=== PATIENT | male | born 1970 | race Caucasian/White ===

== ENCOUNTER 2020-05-12 10:07 | Outpatient (REF) | payer OTHER, SELFPAY | END 2020-05-12 10:08 | disposition home or self-care (01) | LOC: HO.LAB 10:07 | PROVIDERS: Visit Provider Internal Medicine | DX: Z20.822 Contact with and (suspected) exposure to COVID-19 (principal) | CPT/HCPCS: 36415; C9803; U0003 ==

== ENCOUNTER 2020-05-26 14:31 | Emergency (ER) | payer OTHER, SELFPAY | END 2020-05-26 17:40 | disposition left against medical advice (07) | PROVIDERS: Emergency Provider Emergency Medicine; PCP Internal Medicine | DX: K46.9 Unspecified abdominal hernia without obstruction or gangrene (principal) ==

== ENCOUNTER 2020-06-11 20:24 | Emergency (ER) | payer OTHER, SELFPAY | END 2020-06-11 21:08 | disposition left against medical advice (07) | PROVIDERS: Emergency Provider Emergency Medicine; PCP Internal Medicine | DX: K46.9 Unspecified abdominal hernia without obstruction or gangrene (principal) ==

== ENCOUNTER 2021-08-26 11:08 | Emergency (ER) | payer OTHER, SELFPAY ==
--- NOTE | ~2021-08-26 | XR_ITS ---
EXAMINATION: XR CHEST CLINICAL INFORMATION: Cough COMPARISON: 07/02/2019, 01/31/2019 TECHNIQUE: 2 views of the chest were obtained. FINDINGS: Normal cardiomediastinal silhouette. Mild hyperinflation of the lungs. There are 2 nodular opacities in the left upper lobe, the more superior nodule was present on the chest x-ray from 01/31/2019. No large focal consolidation. No pleural effusion or pneumothorax. No acute osseous abnormality. XR/XR chest 2V IMPRESSION: Mild hyperinflation of the lungs, which can be seen in setting of COPD. No acute consolidation. 2 nodular opacities in the left upper lobe, one of which was present since the prior study, the other is new. Recommend further evaluation with CT of the chest.
[2021-08-26 11:18] VITALS: BP 112/71; PULSE 60; RESP 19; TEMP 36.8; O2SAT 96; BMI 21.4
--- NOTE | 2021-08-26 11:49 | ED_ITS ---
HPI - General Adult General Chief complaint: General Medical Stated complaint: Fever/Body aches Time Seen by Provider: 08/26/21 11:44 Source: patient Mode of arrival: ambulatory History of Present Illness HPI narrative: 51-year-old male with past medical history of asthma presenting to the ED complaining of subjective fever, chills, headache, body aches/myalgias and nonproductive cough x1 week. Reports symptoms persistent/worsening. Reports chronic SOB unchanged. Denies CP, ear pain, recent travel. Reports sick contacts Onset (ago): week(s) Related Data Previous Rx's Medication Instructions Recorded acetaminophen 500 mg tablet 500 mg PO Q6H PRN #20 tab 08/26/21 (Tylenol Extra Strength) albuterol sulfate 90 mcg/actuation 2 puff INHALATION Q4-6H PRN #6.7 g 08/26/21 aerosol inhaler benzonatate 200 mg capsule 200 mg PO TID PRN #14 cap 08/26/21 doxycycline hyclate 100 mg tablet 100 mg PO BID 7 Days #14 tab 08/26/21 fluticasone propionate 50 2 spray INTRANASAL DAILY #16 g 08/26/21 mcg/actuation nasal spray,suspension (Flonase Allergy Relief) Allergies Allergy/AdvReac Type Severity Reaction Status Date / Time No Known Allergies Allergy Unverified 01/20/20 14:57 Roxicet Allergy Unknown Uncoded 10/16/11 00:00 Review of Systems Review of Systems: Constitutional: +Fever, + Chills ENT/Mouth: No Ear Pain, + Nasal Congestion, No Sinus Pain, + Hoarseness, + sore throat, + Rhinorrhea, No Swallowing Difficulty Cardiovascular: No Chest Pain, No SOB Respiratory: + Cough, No Sputum, No Wheezing Gastrointestinal: No Nausea, No Vomiting, No Diarrhea, No Constipation, No Abdominal pain Genitourinary:No Dysuria, No Urgency, No Flank Pain Musculoskeletal: No joint pain, + Myalgias, No Joint Swelling Skin: No Skin Lesions, No rash Neuro: No Weakness, No Numbness, No Paresthesias Yes all other systems are reviewed and are negative [facility] Past Medical History Attestation statement: The following information was validated with the patient. Medical History Asthma Social History Social History Advance Directives: No Advance Directives Information Provided: No Physical Exam ED Vital Signs: Vital Signs - 24 hr 08/26/21 11:18 Temperature 98.3 F Pulse Rate 60 Respiratory Rate 19 Blood Pressure 112/71 Pulse Oximetry 96 BMI result Body Mass Index 21.4 Const General: cooperative, healthy appearing, no acute distress, well developed, alert, awake and Physically active Orientation/consciousness: patient oriented x3 Limitations: no limitations HENMT Head: Yes normal to inspection and Yes atraumatic Ears: hearing grossly normal bilaterally, external ears normal, TM's normal bilaterally and mastoids normal General nose exam: Normal external nose present Face and sinus: Yes normal facial exam Mouth: Normal oral and palatal mucosa present Throat: Yes tonsils normal, Yes uvula midline, No abnormal tonsil, No peritonsillar mass, Yes posterior oropharynx abnormal (Mild posterior oropharynx erythema), No uvula laterally displaced and No uvular edema Eyes General: appearance normal, both eyes and all related structures EOM: EOMs intact bilaterally Neck Neck: Yes normal visual inspection and Yes no meningeal signs Resp Effort & Inspection: normal respiratory effort and no respiratory distress Auscultation: clear to auscultation bilaterally, no rales, no rhonchi and no wheezes Cardio Rate: regular rate Heart sounds: S1 normal heart sound present and S2 normal heart sound present Skin Rashes: no rashes Wounds: no wounds Neuro General: patient oriented x3, tone normal and no meningeal signs Gait exam (Neuro): Normal gait present Extrem General: Yes normal to inspection Course Course Course Narrative: -COVID-19 positive 1227--XR chest 2V IMPRESSION: Mild hyperinflation of the lungs, which can be seen in setting of COPD. No acute consolidation. ? 2 nodular opacities in the left upper lobe, one of which was present since the prior study, the other is new. Recommend further evaluation with CT of the chest. > will obtain labs and CT for further eval >> results discussed with patient, patient refusing labs/CT as is aware of nodularity, even though I discussed with him there is new nodularity. Patient reports when had previous nodule worked up ended up with pneumothorax after benign biposy. I stressed importance of follow-up with PCP for outpatient CT/workup. He verbalized understanding Medical Decision Making MDM Narrative Medical decision making narrative: 51-year-old male with past medical history of asthma presenting to the ED complaining of subjective fever, chills, headache, body aches/myalgias and nonproductive cough x1 week. On exam vital signs stable, NAD/nontoxic, lungs CTA. Concern for viral illness versus bronchitis. R/o pneumonia. Low concern for ACS or PE Plan: COVID-19/influenza testing, CXR Medical Records Medical records reviewed: Yes I reviewed the patient's medical records. Lab Data Lab results reviewed: Yes I reviewed the patient's lab results. Labs: Lab Results 08/26/21 08/26/21 Range/Units 11:25 11:25 COVID-19 (ANCELMO) Positive A (Negative) COVID-19 Clin Com See Note Influenza Type A (JENNIFER) Negative (Negative) Influenza Type B (JENNIFER) Negative (Negative) Influenza A & B Note See Note Discharge Plan Discharge Clinical Impression: COVID-19, Lung nodule Patient Disposition: Home, Self-Care Instructions: COVID-19 (Coronavirus Disease 2019) (ED) Additional Instructions: You have COVID-19. Your x-ray shows hyperinflation as well as to nodular opacities in the left upper lobe, 1 of which was seen in prior study 1 of which is new. Please follow-up with your primary care doctor for further evaluation. Doxycycline as an antibiotic please take as prescribed. Flonase and nasal decongestion. Tessalon Perles upper cough. Rest, stay hydrated. Wear your mask. At this time you will be okay for discharge. Please self isolate for 10-14 days. Do not expose yourself to others. You may not go to work or school. Please continue to follow cold instructions and wash your hands frequently. You may take Tylenol / Motrin as directed on the bottle for pain or fever. If you have constant or persistent shortness of breath, fever unresolved with medications, chest pain, or your unable to eat or drink please return to the ED CDC Guidelines for home isolation: - Stay away from others - WEAR A MASK if you are sick AND STAY HOME - Cover your mouth and nose with a tissue when you cough or sneeze. Dispose of tissues in a lined trash can and wash your hands immediately with soap and water for at least 20 seconds. If soap and water are not available, clean hands with alcohol-based hand supervisor component assembler that contains at least 60% alcohol. - Clean your hands often with soap and water for at least 20 seconds - Avoid touching your eyes, nose and mouth with unwashed hands - Do not share dishes, drinking glasses, cups, eating utensils, towels, or bedding with other people in your home. After using these items, wash them thoroughly with soap and water or put in the cafeteria helper. - Clean high-touch surfaces in your isolation area ( sick room and bathroom) every day; let a caregiver clean and disinfect high-touch surfaces in other areas of the home. Clean the area or item with soap and water or another detergent if it is dirty. Then, use a household disinfectant. - Limit contact with pets and animals: If you must care for a pet, wash your hands before and after interacting with them) Prescriptions: New benzonatate 200 mg capsule 200 mg PO TID PRN (Reason: cough) Qty: 14 0RF acetaminophen [Tylenol Extra Strength] 500 mg tablet 500 mg PO Q6H PRN (Reason: pain or fever) Qty: 20 0RF albuterol sulfate 90 mcg/actuation HFA aerosol inhaler 2 puff inhalation Q4-6H PRN (Reason: shortness of breath or wheezing) Qty: 6.7 0RF fluticasone propionate [Flonase Allergy Relief] 50 mcg/actuation spray,suspension 2 spray intranasal DAILY Qty: 16 0RF Rx Instructions: administer into each nostril doxycycline hyclate 100 mg tablet 100 mg PO BID 7 Days Qty: 14 0RF Referrals: Mary Gates MD [Primary Care Provider] - 1 week Stand Alone Forms: Work/School Release
[2021-08-26 11:56] LABS: COVID-19 Test Positive (Negative)
[2021-08-26 12:07] LABS: IDNOW Serial# 16C4AD1C; Influenza A Negative (Negative)
[2021-08-26 12:08] LABS: Influenza B2 Negative (Negative)
== END 2021-08-26 12:50 | disposition home or self-care (01) ==
PROVIDERS: Emergency Provider Emergency Medicine; PCP Internal Medicine
DX: U07.1 COVID-19 (principal); R05.9 Cough, unspecified; R50.9 Fever, unspecified; M79.10 Myalgia, unspecified site; Z79.899 Other long term (current) drug therapy
CPT/HCPCS: 71046; 87502; 87635; 99283

== ENCOUNTER 2022-04-24 19:50 | Emergency (ER) | payer OTHER, SELFPAY ==
--- NOTE | ~2022-04-24 | XR_ITS ---
EXAMINATION: XR CHEST CLINICAL INFORMATION: Cough, shortness of breath. COMPARISON: None TECHNIQUE: 2 views of the chest were obtained. FINDINGS: The lungs are hyperinflated but clear of acute pneumonic process. There is a small left upper lobe 1 cm nodule, stable compared to previous study 08/26/2021. No additional nodules seen.. The heart size and pulmonary vascularity is normal. No gross bony abnormality seen. XR/XR chest 2V IMPRESSION: Hyperinflated lungs without acute process. 1 cm nodule left upper lobe is stable.
[2022-04-24 19:52] VITALS: BP 120/80; PULSE 88; RESP 20; TEMP 36.6; O2SAT 98; BMI 21.4
--- NOTE | 2022-04-24 19:59 | ED_ITS ---
HPI - URI/Sore Throat General Chief Complaint: Upper Respiratory Symptoms Stated Complaint: sick since Friday, cant get out of bed Time Seen by Provider: 04/24/22 20:17 Related Data Previous Rx's Medication Instructions Recorded acetaminophen 500 mg tablet 500 mg PO Q6H PRN pain or fever 08/26/21 (Tylenol Extra Strength) #20 tabs albuterol sulfate 90 mcg/actuation 2 puff inhalation Q4-6H PRN 08/26/21 aerosol inhaler shortness of breath or wheezing #6.7 grams benzonatate 200 mg capsule 200 mg PO TID PRN cough #14 caps 08/26/21 doxycycline hyclate 100 mg tablet 100 mg PO BID 7 days #14 tabs 08/26/21 fluticasone propionate 50 2 spray intranasal DAILY #16 grams 08/26/21 mcg/actuation nasal spray,suspension (Flonase Allergy Relief) albuterol sulfate 90 mcg/actuation 2 puff inhalation Q4-6H PRN 04/24/22 aerosol inhaler shortness of breath or wheezing #8.5 grams azithromycin 250 mg tablet 250 mg PO DAILY 5 days #5 tabs 04/24/22 prednisone 50 mg tablet 50 mg PO DAILY #4 tabs 04/24/22 Allergies Allergy/AdvReac Type Severity Reaction Status Date / Time No Known Allergies Allergy Unverified 01/20/20 14:57 Roxicet Allergy Unknown Shakiness Uncoded 04/24/22 19:56 PMFSH Past Medical History Medical History Asthma Social History Social History Alcohol intake: never Smoked in Last 30 Days: Yes Use of substances other than those prescribed or required for medical reasons: Yes Substance Use Type: Marijuana Advance Directives: No Advance Directives Information Provided: Yes Physical Exam Vital Signs: Vital Signs: Last Vital Signs Temp 99.2 F 04/24/22 20:59 Pulse 74 04/24/22 20:59 Resp 16 04/24/22 20:59 BP 122/76 04/24/22 20:59 Pulse Ox 96 04/24/22 20:59 O2 Del Method 04/24/22 20:59 BMI result Body Mass Index 21.4 Course Course Course Narrative: RME: 51-year-old male who presents emergency department for evaluation of 4 days cough, subjective fever, chills, diaphoresis, fatigue, weakness. Patient states that his symptoms feel similar to when he had pneumonia in the past. Patient states that the symptoms feel different than his COVID symptoms. Patient's vital signs were normal. Lung exam revealed rhonchorous sounds at the bases, no wheezing or rales. I ordered a CBC, CMP, lactic acid, lipase, PT/INR, PTT, urinalysis, blood cultures x2, COVID-19, influenza, RSV testing. I also ordered normal saline IV x1 L. Medications Administered Discontinued Medications Generic Name Dose Route Start Last Admin Trade Name Freq PRN Reason Stop Dose Admin Sodium Chloride 1,000 mls @ 999 mls/hr 04/24/22 19:59 04/24/22 22:21 Ns IV 04/24/22 20:59 Infused .Q1H1M STA Infusion Methylprednisolone Sodium Succinate 125 mg 04/24/22 20:22 04/24/22 21:04 Methylprednisolone Sod Succ 125 Mg/2 Ml Vial IVPUSH 04/24/22 20:23 125 mg ONCE ONE Administration Medical Decision Making Lab Data Result Diagrams: 04/24/22 20:52 04/24/22 20:52 Labs: Lab Results 04/24/22 04/24/22 04/24/22 Range/Units 20:52 20:52 20:52 WBC 10.7 (4.8-10.8) X10*3/uL RBC 4.80 (4.60-5.80) X10*6/uL Hgb 15.1 (14.0-18.0) g/dl Hct 45.1 (42.0-52.0) % MCV 94.0 (80.0-98.0) fL MCH 31.5 (27.0-33.0) pg MCHC 33.5 (31.0-36.0) g/dl RDW 13.7 (11.0-16.0) % Plt Count 331 (160-400) X10*3/uL MPV 9.2 L (9.4-12.4) fL Immature Gran % (Auto) 0.2 (0.0-0.4) % Neut % (Auto) 73.7 H (45-73) % Lymph % (Auto) 10.1 L (20-40) % [place] % (Auto) 13.1 H (2-11) % Eos % (Auto) 2.2 (0-4) % Baso % (Auto) 0.7 (0-2) % Lymph # (Auto) 1.1 L (1.2-4.9) X10*3/uL [place] # (Auto) 1.4 H (0.1-1.2) X10*3/uL Eos # (Auto) 0.2 (0.0-0.4) X10*3/uL Baso # (Auto) 0.1 (0.0-0.2) X10*3/uL Abs Immat Gran (auto) 0.02 (0.00-0.03) X10*3/uL Absolute Neuts (auto) 7.9 (2.0-8.3) x10*3/uL Absolute Nucleated RBC 0.000 (0.0-0.012) X10*3/uL Nucleated RBC % (auto) 0.0 (0.0-0.2) /100WBC PT 13.4 H (10.0-13.1) SEC INR 1.2 H (0.9-1.1) APTT 33.5 (26.0-36.4) SEC Sodium 140 (135-145) mmol/L Potassium 4.2 (3.3-5.1) mmol/L Chloride 104 (96-108) mmol/L Carbon Dioxide 27 (22-29) mmol/L Anion Gap 13 (12-20) BUN 21 H (9-16) mg/dL Creatinine 0.90 (0.5-1.4) mg/dL Estim Creat Clear Calc 89.3 Estimated GFR > 60 Random Glucose 122 H (60-115) mg/dL Lactic Acid (0.5-2.0) mmol/L Calcium 9.3 (8.4-10.2) mg/dL Total Bilirubin 0.3 (0.0-1.0) mg/dL AST 15 (5-37) U/L ALT 15 (0-40) U/L Alkaline Phosphatase 86 (39-117) U/L Total Protein 6.8 (6.5-8.0) g/dL Albumin 3.9 (3.5-5.0) g/dL Lipase 28 (8-78) U/L Urine Color Urine Appearance Urine pH (5.0-9.0) Ur Specific [place] (1.005-1.025) Urine Protein (Neg-Trace) mg/dL Urine Glucose (UA) (Negative) mg/dL Urine Ketones (Negative) mg/dL Urine Blood (Negative) Urine Nitrite (Negative) Ur Leukocyte Esterase (Negative) Urine Opiates Screen (Not Detect) Urine Fentanyl Screen (Not Detect) Ur Barbiturates Screen (Not Detect) Ur Phencyclidine Scrn (Not Detect) Ur Amphetamines Screen (Not Detect) U Benzodiazepines Scrn (Not Detect) Urine Cocaine Screen (Not Detect) U Marijuana (THC) Screen (Not Detect) Influenza Type A (PCR) (Negative) Influenza Type B (PCR) (Negative) RSV RNA Qual (PCR) (Negative) SARS-CoV-2 RNA (RT-PCR) (Negative) 04/24/22 04/24/22 04/24/22 Range/Units 20:52 20:53 21:39 WBC (4.8-10.8) X10*3/uL RBC (4.60-5.80) X10*6/uL Hgb (14.0-18.0) g/dl Hct (42.0-52.0) % MCV (80.0-98.0) fL MCH (27.0-33.0) pg MCHC (31.0-36.0) g/dl RDW (11.0-16.0) % Plt Count (160-400) X10*3/uL MPV (9.4-12.4) fL Immature Gran % (Auto) (0.0-0.4) % Neut % (Auto) (45-73) % Lymph % (Auto) (20-40) % [place] % (Auto) (2-11) % Eos % (Auto) (0-4) % Baso % (Auto) (0-2) % Lymph # (Auto) (1.2-4.9) X10*3/uL [place] # (Auto) (0.1-1.2) X10*3/uL Eos # (Auto) (0.0-0.4) X10*3/uL Baso # (Auto) (0.0-0.2) X10*3/uL Abs Immat Gran (auto) (0.00-0.03) X10*3/uL Absolute Neuts (auto) (2.0-8.3) x10*3/uL Absolute Nucleated RBC (0.0-0.012) X10*3/uL Nucleated RBC % (auto) (0.0-0.2) /100WBC PT (10.0-13.1) SEC INR (0.9-1.1) APTT (26.0-36.4) SEC Sodium (135-145) mmol/L Potassium (3.3-5.1) mmol/L Chloride (96-108) mmol/L Carbon Dioxide (22-29) mmol/L Anion Gap (12-20) BUN (9-16) mg/dL Creatinine (0.5-1.4) mg/dL Estim Creat Clear Calc Estimated GFR Random Glucose (60-115) mg/dL Lactic Acid 1.7 (0.5-2.0) mmol/L Calcium (8.4-10.2) mg/dL Total Bilirubin (0.0-1.0) mg/dL AST (5-37) U/L ALT (0-40) U/L Alkaline Phosphatase (39-117) U/L Total Protein (6.5-8.0) g/dL Albumin (3.5-5.0) g/dL Lipase (8-78) U/L Urine Color Yellow Urine Appearance Clear Urine pH 5.5 (5.0-9.0) Ur Specific [place] 1.025 (1.005-1.025) Urine Protein Negative (Neg-Trace) mg/dL Urine Glucose (UA) 100 H (Negative) mg/dL Urine Ketones Negative (Negative) mg/dL Urine Blood Negative (Negative) Urine Nitrite Negative (Negative) Ur Leukocyte Esterase Negative (Negative) Urine Opiates Screen (Not Detect) Urine Fentanyl Screen (Not Detect) Ur Barbiturates Screen (Not Detect) Ur Phencyclidine Scrn (Not Detect) Ur Amphetamines Screen (Not Detect) U Benzodiazepines Scrn (Not Detect) Urine Cocaine Screen (Not Detect) U Marijuana (THC) Screen (Not Detect) Influenza Type A (PCR) NEGATIVE (Negative) Influenza Type B (PCR) NEGATIVE (Negative) RSV RNA Qual (PCR) NEGATIVE (Negative) SARS-CoV-2 RNA (RT-PCR) NEGATIVE (Negative) 04/24/22 Range/Units 21:39 WBC (4.8-10.8) X10*3/uL RBC (4.60-5.80) X10*6/uL Hgb (14.0-18.0) g/dl Hct (42.0-52.0) % MCV (80.0-98.0) fL MCH (27.0-33.0) pg MCHC (31.0-36.0) g/dl RDW (11.0-16.0) % Plt Count (160-400) X10*3/uL MPV (9.4-12.4) fL Immature Gran % (Auto) (0.0-0.4) % Neut % (Auto) (45-73) % Lymph % (Auto) (20-40) % [place] % (Auto) (2-11) % Eos % (Auto) (0-4) % Baso % (Auto) (0-2) % Lymph # (Auto) (1.2-4.9) X10*3/uL [place] # (Auto) (0.1-1.2) X10*3/uL Eos # (Auto) (0.0-0.4) X10*3/uL Baso # (Auto) (0.0-0.2) X10*3/uL Abs Immat Gran (auto) (0.00-0.03) X10*3/uL Absolute Neuts (auto) (2.0-8.3) x10*3/uL Absolute Nucleated RBC (0.0-0.012) X10*3/uL Nucleated RBC % (auto) (0.0-0.2) /100WBC PT (10.0-13.1) SEC INR (0.9-1.1) APTT (26.0-36.4) SEC Sodium (135-145) mmol/L Potassium (3.3-5.1) mmol/L Chloride (96-108) mmol/L Carbon Dioxide (22-29) mmol/L Anion Gap (12-20) BUN (9-16) mg/dL Creatinine (0.5-1.4) mg/dL Estim Creat Clear Calc Estimated GFR Random Glucose (60-115) mg/dL Lactic Acid (0.5-2.0) mmol/L Calcium (8.4-10.2) mg/dL Total Bilirubin (0.0-1.0) mg/dL AST (5-37) U/L ALT (0-40) U/L Alkaline Phosphatase (39-117) U/L Total Protein (6.5-8.0) g/dL Albumin (3.5-5.0) g/dL Lipase (8-78) U/L Urine Color Urine Appearance Urine pH (5.0-9.0) Ur Specific [place] (1.005-1.025) Urine Protein (Neg-Trace) mg/dL Urine Glucose (UA) (Negative) mg/dL Urine Ketones (Negative) mg/dL Urine Blood (Negative) Urine Nitrite (Negative) Ur Leukocyte Esterase (Negative) Urine Opiates Screen Not Detected (Not Detect) Urine Fentanyl Screen Not Detected (Not Detect) Ur Barbiturates Screen Not Detected (Not Detect) Ur Phencyclidine Scrn Not Detected (Not Detect) Ur Amphetamines Screen Not Detected (Not Detect) U Benzodiazepines Scrn Not Detected (Not Detect) Urine Cocaine Screen POSITIVE H (Not Detect) U Marijuana (THC) Screen Not Detected (Not Detect) Influenza Type A (PCR) (Negative) Influenza Type B (PCR) (Negative) RSV RNA Qual (PCR) (Negative) SARS-CoV-2 RNA (RT-PCR) (Negative) Discharge Plan Discharge Clinical Impression: Bronchitis Patient Disposition: Home, Self-Care Instructions: Acute Bronchitis (ED) Additional Instructions: Please follow-up with your primary care physician tomorrow. If you have any worsening or new symptoms, please return to the emergency room or call 911 Prescriptions: New prednisone 50 mg tablet 50 mg PO DAILY Qty: 4 0RF azithromycin 250 mg tablet 250 mg PO DAILY 5 Days Qty: 5 0RF albuterol sulfate 90 mcg/actuation HFA aerosol inhaler 2 puff inhalation Q4-6H PRN (Reason: shortness of breath or wheezing) Qty: 8.5 0RF No Action benzonatate 200 mg capsule 200 mg PO TID PRN (Reason: cough) Qty: 14 0RF acetaminophen [Tylenol Extra Strength] 500 mg tablet 500 mg PO Q6H PRN (Reason: pain or fever) Qty: 20 0RF albuterol sulfate 90 mcg/actuation HFA aerosol inhaler 2 puff inhalation Q4-6H PRN (Reason: shortness of breath or wheezing) Qty: 6.7 0RF fluticasone propionate [Flonase Allergy Relief] 50 mcg/actuation spray,susp ension 2 spray intranasal DAILY Qty: 16 0RF Rx Instructions: administer into each nostril doxycycline hyclate 100 mg tablet 100 mg PO BID 7 Days Qty: 14 0RF Interventions: ED Discharge Assessment Last Done: 04/24/22 22:40 Discharge Date/Time: 04/24/22 22:42
--- NOTE | 2022-04-24 20:21 | ED_ITS ---
HPI - General Adult General Chief complaint: Upper Respiratory Symptoms Stated complaint: sick since Friday, cant get out of bed Time Seen by Provider: 04/24/22 20:17 Source: patient Mode of arrival: ambulatory Limitations: no limitations History of Present Illness HPI narrative: Patient comes to the emergency room complaining of 4 days of cough, subjective fever, chills, diffuse body aches. Patient states that he has an inhaler at home for both asthma COPD, he has been using it more often than usual. Related Data Previous Rx's Medication Instructions Recorded acetaminophen 500 mg tablet 500 mg PO Q6H PRN pain or fever 08/26/21 (Tylenol Extra Strength) #20 tabs albuterol sulfate 90 mcg/actuation 2 puff inhalation Q4-6H PRN 08/26/21 aerosol inhaler shortness of breath or wheezing #6.7 grams benzonatate 200 mg capsule 200 mg PO TID PRN cough #14 caps 08/26/21 doxycycline hyclate 100 mg tablet 100 mg PO BID 7 days #14 tabs 08/26/21 fluticasone propionate 50 2 spray intranasal DAILY #16 grams 08/26/21 mcg/actuation nasal spray,suspension (Flonase Allergy Relief) albuterol sulfate 90 mcg/actuation 2 puff inhalation Q4-6H PRN 04/24/22 aerosol inhaler shortness of breath or wheezing #8.5 grams azithromycin 250 mg tablet 250 mg PO DAILY 5 days #5 tabs 04/24/22 prednisone 50 mg tablet 50 mg PO DAILY #4 tabs 04/24/22 Allergies Allergy/AdvReac Type Severity Reaction Status Date / Time No Known Allergies Allergy Unverified 01/20/20 14:57 Roxicet Allergy Unknown Shakiness Uncoded 04/24/22 19:56 Review of Systems Review of Systems: Constitutional : No Weight loss, complaining of fever and chills, fatigue and generalized malaise ENT/Mouth : No Hearing loss, No Ear Pain, No Nasal Congestion, No Sinus Pain, No Hoarseness, No sore throat, No Rhinorrhea, No Swallowing Difficulty Eyes: No Eye Pain, No Swelling, No Redness, No Foreign Body, No Discharge, No Vision Changes Cardiovascular : No Chest Pain, No SOB, No Orthopnea, No Edema, No Palpitations Respiratory : Complaining of worsening cough with sputum, no shortness of breath Gastrointestinal : No Nausea, No Vomiting, No Diarrhea, No Constipation, No abdominal Pain, No Hematochezia, No Melena Genitourinary : no irregular bleeding, No Dysuria, No Urinary Frequency, No Hematuria, No Urinary Incontinence, No Urgency, No Flank Pain, No Urinary Flow Changes, No Hesitancy Musculoskeletal : No joint pain, No Myalgias, No Joint Swelling Skin : No Skin Lesions, No rash Neuro : No Weakness, No Numbness, No Paresthesias, No Loss of Consciousness, No Dizziness, No Headache Psych : No Anxiety/Panic, No Depression, No SI/HI/AH/VH, No Social Issues, Heme/Lymph: No Bruising, No Bleeding,No Lymphadenopathy Endocrine : No Polyuria, No Polydipsia, No Temperature Intolerance [facility] Past Medical History Medical History Asthma Social History Social History Advance Directives: No Advance Directives Information Provided: Yes Physical Exam ED Vital Signs: Vital Signs - 24 hr 04/24/22 19:52 04/24/22 20:59 Temperature 98 F 99.2 F Pulse Rate 88 74 Respiratory Rate 20 16 Blood Pressure 120/80 122/76 Pulse Oximetry 98 96 Oxygen Delivery Method Room Air Room Air BMI result Body Mass Index 21.4 Const Other: Appearance: Alert. Oriented X3. No acute distress. Somnolent but awake Eyes: Pinpoint pupils bilaterally, Pupils equal, round and reactive to light. ENT: Pharynx normal. Neck: Normal inspection. Neck supple. No lymph nodes noted. No crepitus CVS: Normal heart rate and rhythm. Pulses normal. Normal S1 and S2 Respiratory: No respiratory distress. Breath sounds normal. No Wheezing. No rales Abdomen: Soft and nontender. No rigidity. No distention. Skin: Skin warm and dry. Normal skin color. Normal skin turgor. Extremities: No lower extremity edema. No Lacerations. No Rash Neuro: Oriented X 3. No motor deficit. No sensory deficit. Moving all extremities. No slurred speech. CN 2 through 12 grossly intact Psych: calm, cooperative, normal affect Course Course Course Narrative: All of patient's labs and imaging are pending. In the meantime, a L of normal saline has been ordered. Also, patient received 1 dose of Solu-Medrol, at this time patient is not wheezing, but has history of asthma COPD, would likely benefit of an IV dose of steroids. Patient's white blood cell count within normal limits, x-ray negative. Tested negative for COVID/influenza/RSV. Patient does have history of COPD, patient would benefit from steroids and azithromycin due to his comorbidities. Patient agrees with plan. Medications Administered Discontinued Medications Generic Name Dose Route Start Last Admin Trade Name Freq PRN Reason Stop Dose Admin Sodium Chloride 1,000 mls @ 999 mls/hr 04/24/22 19:59 04/24/22 22:21 Ns IV 04/24/22 20:59 Infused .Q1H1M STA Infusion Methylprednisolone Sodium Succinate 125 mg 04/24/22 20:22 04/24/22 21:04 Methylprednisolone Sod Succ 125 Mg/2 Ml Vial IVPUSH 04/24/22 20:23 125 mg ONCE ONE Administration Medical Decision Making Lab Data Result Diagrams: 04/24/22 20:52 04/24/22 20:52 Labs: Lab Results 04/24/22 04/24/22 04/24/22 Range/Units 20:52 20:52 20:52 WBC 10.7 (4.8-10.8) X10*3/uL RBC 4.80 (4.60-5.80) X10*6/uL Hgb 15.1 (14.0-18.0) g/dl Hct 45.1 (42.0-52.0) % MCV 94.0 (80.0-98.0) fL MCH 31.5 (27.0-33.0) pg MCHC 33.5 (31.0-36.0) g/dl RDW 13.7 (11.0-16.0) % Plt Count 331 (160-400) X10*3/uL MPV 9.2 L (9.4-12.4) fL Immature Gran % (Auto) 0.2 (0.0-0.4) % Neut % (Auto) 73.7 H (45-73) % Lymph % (Auto) 10.1 L (20-40) % [place] % (Auto) 13.1 H (2-11) % Eos % (Auto) 2.2 (0-4) % Baso % (Auto) 0.7 (0-2) % Lymph # (Auto) 1.1 L (1.2-4.9) X10*3/uL [place] # (Auto) 1.4 H (0.1-1.2) X10*3/uL Eos # (Auto) 0.2 (0.0-0.4) X10*3/uL Baso # (Auto) 0.1 (0.0-0.2) X10*3/uL Abs Immat Gran (auto) 0.02 (0.00-0.03) X10*3/uL Absolute Neuts (auto) 7.9 (2.0-8.3) x10*3/uL Absolute Nucleated RBC 0.000 (0.0-0.012) X10*3/uL Nucleated RBC % (auto) 0.0 (0.0-0.2) /100WBC PT 13.4 H (10.0-13.1) SEC INR 1.2 H (0.9-1.1) APTT 33.5 (26.0-36.4) SEC Sodium 140 (135-145) mmol/L Potassium 4.2 (3.3-5.1) mmol/L Chloride 104 (96-108) mmol/L Carbon Dioxide 27 (22-29) mmol/L Anion Gap 13 (12-20) BUN 21 H (9-16) mg/dL Creatinine 0.90 (0.5-1.4) mg/dL Estim Creat Clear Calc 89.3 Estimated GFR > 60 Random Glucose 122 H (60-115) mg/dL Lactic Acid (0.5-2.0) mmol/L Calcium 9.3 (8.4-10.2) mg/dL Total Bilirubin 0.3 (0.0-1.0) mg/dL AST 15 (5-37) U/L ALT 15 (0-40) U/L Alkaline Phosphatase 86 (39-117) U/L Total Protein 6.8 (6.5-8.0) g/dL Albumin 3.9 (3.5-5.0) g/dL Lipase 28 (8-78) U/L Urine Color Urine Appearance Urine pH (5.0-9.0) Ur Specific [place] (1.005-1.025) Urine Protein (Neg-Trace) mg/dL Urine Glucose (UA) (Negative) mg/dL Urine Ketones (Negative) mg/dL Urine Blood (Negative) Urine Nitrite (Negative) Ur Leukocyte Esterase (Negative) Urine Opiates Screen (Not Detect) Urine Fentanyl Screen (Not Detect) Ur Barbiturates Screen (Not Detect) Ur Phencyclidine Scrn (Not Detect) Ur Amphetamines Screen (Not Detect) U Benzodiazepines Scrn (Not Detect) Urine Cocaine Screen (Not Detect) U Marijuana (THC) Screen (Not Detect) Influenza Type A (PCR) (Negative) Influenza Type B (PCR) (Negative) RSV RNA Qual (PCR) (Negative) SARS-CoV-2 RNA (RT-PCR) (Negative) 04/24/22 04/24/22 04/24/22 Range/Units 20:52 20:53 21:39 WBC (4.8-10.8) X10*3/uL RBC (4.60-5.80) X10*6/uL Hgb (14.0-18.0) g/dl Hct (42.0-52.0) % MCV (80.0-98.0) fL MCH (27.0-33.0) pg MCHC (31.0-36.0) g/dl RDW (11.0-16.0) % Plt Count (160-400) X10*3/uL MPV (9.4-12.4) fL Immature Gran % (Auto) (0.0-0.4) % Neut % (Auto) (45-73) % Lymph % (Auto) (20-40) % [place] % (Auto) (2-11) % Eos % (Auto) (0-4) % Baso % (Auto) (0-2) % Lymph # (Auto) (1.2-4.9) X10*3/uL [place] # (Auto) (0.1-1.2) X10*3/uL Eos # (Auto) (0.0-0.4) X10*3/uL Baso # (Auto) (0.0-0.2) X10*3/uL Abs Immat Gran (auto) (0.00-0.03) X10*3/uL Absolute Neuts (auto) (2.0-8.3) x10*3/uL Absolute Nucleated RBC (0.0-0.012) X10*3/uL Nucleated RBC % (auto) (0.0-0.2) /100WBC PT (10.0-13.1) SEC INR (0.9-1.1) APTT (26.0-36.4) SEC Sodium (135-145) mmol/L Potassium (3.3-5.1) mmol/L Chloride (96-108) mmol/L Carbon Dioxide (22-29) mmol/L Anion Gap (12-20) BUN (9-16) mg/dL Creatinine (0.5-1.4) mg/dL Estim Creat Clear Calc Estimated GFR Random Glucose (60-115) mg/dL Lactic Acid 1.7 (0.5-2.0) mmol/L Calcium (8.4-10.2) mg/dL Total Bilirubin (0.0-1.0) mg/dL AST (5-37) U/L ALT (0-40) U/L Alkaline Phosphatase (39-117) U/L Total Protein (6.5-8.0) g/dL Albumin (3.5-5.0) g/dL Lipase (8-78) U/L Urine Color Yellow Urine Appearance Clear Urine pH 5.5 (5.0-9.0) Ur Specific [place] 1.025 (1.005-1.025) Urine Protein Negative (Neg-Trace) mg/dL Urine Glucose (UA) 100 H (Negative) mg/dL Urine Ketones Negative (Negative) mg/dL Urine Blood Negative (Negative) Urine Nitrite Negative (Negative) Ur Leukocyte Esterase Negative (Negative) Urine Opiates Screen (Not Detect) Urine Fentanyl Screen (Not Detect) Ur Barbiturates Screen (Not Detect) Ur Phencyclidine Scrn (Not Detect) Ur Amphetamines Screen (Not Detect) U Benzodiazepines Scrn (Not Detect) Urine Cocaine Screen (Not Detect) U Marijuana (THC) Screen (Not Detect) Influenza Type A (PCR) NEGATIVE (Negative) Influenza Type B (PCR) NEGATIVE (Negative) RSV RNA Qual (PCR) NEGATIVE (Negative) SARS-CoV-2 RNA (RT-PCR) NEGATIVE (Negative) 04/24/22 Range/Units 21:39 WBC (4.8-10.8) X10*3/uL RBC (4.60-5.80) X10*6/uL Hgb (14.0-18.0) g/dl Hct (42.0-52.0) % MCV (80.0-98.0) fL MCH (27.0-33.0) pg MCHC (31.0-36.0) g/dl RDW (11.0-16.0) % Plt Count (160-400) X10*3/uL MPV (9.4-12.4) fL Immature Gran % (Auto) (0.0-0.4) % Neut % (Auto) (45-73) % Lymph % (Auto) (20-40) % [place] % (Auto) (2-11) % Eos % (Auto) (0-4) % Baso % (Auto) (0-2) % Lymph # (Auto) (1.2-4.9) X10*3/uL [place] # (Auto) (0.1-1.2) X10*3/uL Eos # (Auto) (0.0-0.4) X10*3/uL Baso # (Auto) (0.0-0.2) X10*3/uL Abs Immat Gran (auto) (0.00-0.03) X10*3/uL Absolute Neuts (auto) (2.0-8.3) x10*3/uL Absolute Nucleated RBC (0.0-0.012) X10*3/uL Nucleated RBC % (auto) (0.0-0.2) /100WBC PT (10.0-13.1) SEC INR (0.9-1.1) APTT (26.0-36.4) SEC Sodium (135-145) mmol/L Potassium (3.3-5.1) mmol/L Chloride (96-108) mmol/L Carbon Dioxide (22-29) mmol/L Anion Gap (12-20) BUN (9-16) mg/dL Creatinine (0.5-1.4) mg/dL Estim Creat Clear Calc Estimated GFR Random Glucose (60-115) mg/dL Lactic Acid (0.5-2.0) mmol/L Calcium (8.4-10.2) mg/dL Total Bilirubin (0.0-1.0) mg/dL AST (5-37) U/L ALT (0-40) U/L Alkaline Phosphatase (39-117) U/L Total Protein (6.5-8.0) g/dL Albumin (3.5-5.0) g/dL Lipase (8-78) U/L Urine Color Urine Appearance Urine pH (5.0-9.0) Ur Specific [place] (1.005-1.025) Urine Protein (Neg-Trace) mg/dL Urine Glucose (UA) (Negative) mg/dL Urine Ketones (Negative) mg/dL Urine Blood (Negative) Urine Nitrite (Negative) Ur Leukocyte Esterase (Negative) Urine Opiates Screen Not Detected (Not Detect) Urine Fentanyl Screen Not Detected (Not Detect) Ur Barbiturates Screen Not Detected (Not Detect) Ur Phencyclidine Scrn Not Detected (Not Detect) Ur Amphetamines Screen Not Detected (Not Detect) U Benzodiazepines Scrn Not Detected (Not Detect) Urine Cocaine Screen POSITIVE H (Not Detect) U Marijuana (THC) Screen Not Detected (Not Detect) Influenza Type A (PCR) (Negative) Influenza Type B (PCR) (Negative) RSV RNA Qual (PCR) (Negative) SARS-CoV-2 RNA (RT-PCR) (Negative) Radiology Impression Discussion of test interpretation with radiology: I have reviewed the radiologist's reading. Radiologist Impression: FINDINGS: The lungs are hyperinflated but clear of acute pneumonic process. There is a small left upper lobe 1 cm nodule, stable compared to previous study 08/26/2021. No additional nodules seen.. The heart size and pulmonary vascularity is normal. No gross bony abnormality seen. XR/XR chest 2V IMPRESSION: Hyperinflated lungs without acute process. ? 1 cm nodule left upper lobe is stable. Discharge Plan Discharge Clinical Impression: Bronchitis Patient Disposition: Home, Self-Care Instructions: Acute Bronchitis (ED) Additional Instructions: Please follow-up with your primary care physician tomorrow. If you have any worsening or new symptoms, please return to the emergency room or call 911 Prescriptions: New prednisone 50 mg tablet 50 mg PO DAILY Qty: 4 0RF azithromycin 250 mg tablet 250 mg PO DAILY 5 Days Qty: 5 0RF albuterol sulfate 90 mcg/actuation HFA aerosol inhaler 2 puff inhalation Q4-6H PRN (Reason: shortness of breath or wheezing) Qty: 8.5 0RF No Action benzonatate 200 mg capsule 200 mg PO TID PRN (Reason: cough) Qty: 14 0RF acetaminophen [Tylenol Extra Strength] 500 mg tablet 500 mg PO Q6H PRN (Reason: pain or fever) Qty: 20 0RF albuterol sulfate 90 mcg/actuation HFA aerosol inhaler 2 puff inhalation Q4-6H PRN (Reason: shortness of breath or wheezing) Qty: 6.7 0RF fluticasone propionate [Flonase Allergy Relief] 50 mcg/actuation spray,suspension 2 spray intranasal DAILY Qty: 16 0RF Rx Instructions: administer into each nostril doxycycline hyclate 100 mg tablet 100 mg PO BID 7 Days Qty: 14 0RF
[2022-04-24 20:59] VITALS: BP 122/76; PULSE 74; RESP 16; TEMP 37.3; O2SAT 96
[2022-04-24 21:00] LABS: MANUAL DIFF FLAG NO
[2022-04-24] MEDS: 0.9 % Sodium Chloride 1,000 ML 999 ML IV (21:03)
--- NOTE | 2022-04-24 21:03 | MHC.EDTECH ---
Pt made aware that a urine sample is needed. Pt states that He doesn't have to go and wont have to go until the morning' Pt made aware that he should at least attempt to obtain a sample. Pt stated No he will not because he knows when he has to go Geovanna Luz made aware
[2022-04-24 21:04] LABS: Basophils Absolute Auto 0.1 X10*3/uL (0.0-0.2); Basophils Percent Auto 0.7 % (0-2); Eosinophils Absolute Auto 0.2 X10*3/uL (0.0-0.4); Eosinophils Percent Auto 2.2 % (0-4); Hematocrit 45.1 % (42.0-52.0); Hemoglobin 15.1 g/dl (14.0-18.0); Imm Gran Abs Auto 0.02 X10*3/uL (0.00-0.03); Imm Gran Pct Auto 0.2 % (0.0-0.4); Lymphocytes Absolute Auto 1.1 X10*3/uL (1.2-4.9); Lymphocytes Percent Auto 10.1 % (20-40); Mean Corpuscular HGB Conc 33.5 g/dl (31.0-36.0); Mean Corpuscular Hemoglobin 31.5 pg (27.0-33.0); Mean Platelet Volume 9.2 fL (9.4-12.4); Monocytes Absolute Auto 1.4 X10*3/uL (0.1-1.2); Monocytes Percent Auto 13.1 % (2-11); Neutrophils Absolute Auto 7.9 x10*3/uL (2.0-8.3); Neutrophils Percent Auto 73.7 % (45-73); Platelet Count 331 X10*3/uL (160-400); Red Cell Distribution Width 13.7 % (11.0-16.0); White Blood Count 10.7 X10*3/uL (4.8-10.8)
[2022-04-24] MEDS: methylPREDNISolone Sod Succ 125 MG/2 ML VIAL IVPUSH (21:04)
[2022-04-24 21:14] LABS: INTERNATIONAL NORM RATIO 1.2 (0.9-1.1); Prothrombin Time 13.4 SEC (10.0-13.1)
[2022-04-24 21:16] LABS: Partial Thromboplastin Time 33.5 SEC (26.0-36.4)
[2022-04-24 21:20] LABS: Lactic Acid 1.7 mmol/L (0.5-2.0)
[2022-04-24 21:25] LABS: Alanine Aminotransferase 15 U/L (0-40); Albumin Level 3.9 g/dL (3.5-5.0); Alkaline Phosphatase 86 U/L (39-117); Anion Gap 13 (12-20); Aspartate Amino Transferase 15 U/L (5-37); Bilirubin Total 0.3 mg/dL (0.0-1.0); Blood Urea Nitrogen 21 mg/dL (9-16); Calcium 9.3 mg/dL (8.4-10.2); Carbon Dioxide 27 mmol/L (22-29); Chloride 104 mmol/L (96-108); Creatinine Clr Calc Pharmacy 89.3; Estimated Glomerular Filt Rate > 60; Glucose Random 122 mg/dL (60-115); Lipase 28 U/L (8-78); Potassium 4.2 mmol/L (3.3-5.1); Sodium 140 mmol/L (135-145); Total Protein 6.8 g/dL (6.5-8.0)
[2022-04-24 21:47] LABS: Influenza A PCR NEGATIVE (Negative); Influenza B PCR NEGATIVE (Negative); Resp Syncy Virus RNA Qual PCR NEGATIVE (Negative); SARS COV2 PCR INHOUSE NEGATIVE (Negative)
[2022-04-24 21:47] LABS: Appearance Urine Clear; Color Urine Yellow; Glucose Urine UA 100 mg/dL (Negative); Leukocyte Esterase Urine Negative (Negative); Nitrite Urine Negative (Negative); PH 5.5 (5.0-9.0); Specific Gravity - Urine 1.025 (1.005-1.025); Urine Blood Negative (Negative); Urine Ketones Negative (Negative); Urine Protein Negative (Neg-Trace)
[2022-04-24 21:57] LABS: Amphetamine Screen Urine Not Detected (Not Detect); Barbiturates, Urine Not Detected (Not Detect); Benzodiazepines Screen Urine Not Detected (Not Detect); Cannabinoid Screen Urine Not Detected (Not Detect); Cocaine Screen Urine POSITIVE (Not Detect); Fentanyl, urine Not Detected (Not Detect); Opiate Screen Urine Not Detected (Not Detect); Phencyclidine Screen Urine Not Detected (Not Detect)
--- NOTE | 2022-04-24 22:29 | PC.NURSE ---
Pt. resting in bed, awaiting d/c. Pt. reports feeling better after receiving the dose of steroids. Pt. took out his IV in anticipation of d/c. Pt. has some intermittent coughing but no sob or work of breathing.
== END 2022-04-24 22:42 | disposition home or self-care (01) ==
PROVIDERS: Emergency Medicine Emergency Medical Services; Emergency Provider Emergency Medicine; PCP Internal Medicine
DX: J40 Bronchitis, not specified as acute or chronic (principal); Z20.822 Contact with and (suspected) exposure to COVID-19; F12.90 Cannabis use, unspecified, uncomplicated; Z79.899 Other long term (current) drug therapy
CPT/HCPCS: 0241U; 36415; 71046; 80053; 80307; 81003; 83605; 83690; 85025; 85610; 85730; 87040; 96361; 96374; 99284; J2930

== ENCOUNTER 2022-06-05 10:48 | Day surgery (SDC) | payer OTHER, SELFPAY ==
[2022-06-05 11:02] VITALS: BMI 21.4
[2022-06-05 11:08] VITALS: BP 112/65; PULSE 70; RESP 18; TEMP 36.4; O2SAT 93
[2022-06-05] MEDS: Lactated Ringers 1,000 ML 50 ML IVCONT (11:22)
--- NOTE | 2022-06-05 12:26 | HO.ANESPROP2 ---
[facility] Active Problems Active Problems: All Active Problems (Updated 05/30/22 @ 10:39 by Giuliana Galeas RN) COVID-19 (Acute) Past Medical History Medical History Asthma BPH (benign prostatic hyperplasia) COPD (chronic obstructive pulmonary disease) Pulmonary nodule Renal calculi Surgical History Surgical History (Updated 05/30/22 @ 10:39 by Giuliana Galeas RN) Hx of hernia repair History of Problems with Anesthesia: No Social History Social History (Updated 05/30/22 @ 10:47 by Giuliana Galeas RN) Alcohol intake: never Patient Tobacco Use Status: Current everyday Tobacco user Tobacco use type: Cigarette Cigarette Packs Per Day: 1 Cigarettes Per Day: 20.0 Years Smoked: 35 Date Education Initiated: 06/05/22 Use of substances other than those prescribed or required for medical reasons: Yes Substance Use Type: Marijuana Are you DNR?: No Advance Directives: No Advance Directives Information Provided: Yes Meds Allergies Allergy/AdvReac Type Severity Reaction Status Date / Time Roxicet Allergy Intermediate Shakiness Uncoded 05/30/22 10:37 Active Medications: Current Medications Lactated Ringer's (Lr) 1,000 mls @ 50 mls/hr IVCONT .Q20H WARD Last Admin: 06/05/22 11:22 Dose: 50 mls/hr Home Medications Medication Instructions Recorded Confirmed Last Taken Type albuterol sulfate 90 mcg/actuation 2 puff inhalation Q4H PRN wheezing 05/30/22 05/30/22 Unknown History aerosol inhaler (Ventolin HFA) budesonide 160 mcg-glycopyr 9 2 puff inhalation BID 05/30/22 05/30/22 Unknown History mcg-formot 4.8 mcg/actuation HFA inhaler (Breztri Aerosphere) budesonide-formoterol HFA 160 2 puff inhalation BID 05/30/22 05/30/22 Unknown History mcg-4.5 mcg/actuation aerosol inhaler (Symbicort) ipratropium 20 mcg-albuterol 100 1 puff inhalation QID 05/30/22 05/30/22 Unknown History mcg/actuation mist for inhalation (Combivent Respimat) tiotropium bromide 2.5 2 spray inhalation DAILY 05/30/22 05/30/22 Unknown History mcg/actuation mist for inhalation (Spiriva Respimat) Exam Exam Date and Time: June 05, 2022 1226 Height,Weight and Vital Signs: Height 5 ft 9 in Weight 65.771 kg Last Vital Signs Temp 97.5 F 06/05/22 11:08 Pulse 70 06/05/22 11:08 Resp 18 06/05/22 11:08 BP 112/65 06/05/22 11:08 Pulse Ox 93 06/05/22 11:08 O2 Del Method 06/05/22 11:08 Airway Mallampati Class: III (Globally poor dentition) TM Dist: >3cm Neck ROM: Full Loose/Missing/Broken Teeth: No Heart: RRR Lungs: CTA Assessment and Plan Assessment Anesthesia Assessment: Anesthesia Plan Discussed and Chart Reviewed Final Anesthetic Review History of Problems with Anesthesia: No NPO: Yes ASA Class: III Final Preanesthetic Review: Meds/Allgs Chart Reviewed, Consent Obtained/Reviewed and Anes Risks/Benef Reviewed Patient Risk: Intermediate Procedure Risk: Low Anesthetic Plan Anesthetic Plan: GA Disposition: Standard PACU
[2022-06-05 14:23] VITALS: BP 126/84; PULSE 78; RESP 20; TEMP 36.5; O2SAT 98
[2022-06-05 14:28] VITALS: BP 122/78; PULSE 81; RESP 20; O2SAT 98
[2022-06-05 14:33] VITALS: BP 122/78; PULSE 86; RESP 20; TEMP 36.9; O2SAT 97
--- NOTE | 2022-06-05 14:37 | HO.OPHTHAL ---
Ophthalmology Operative Note Date of Service: 06/05/22 Narrative: Diagnosis exotropia. Procedures 1. Advancement of right medial rectus muscle 7 mm. 2. Recession of right lateral rectus muscle [address] Mcgraw anesthesia general complications none. The patient was brought to the operating room placed under general anesthesia. The patient's eyes were prepped and draped in the usual sterile ophthalmic fashion. A lid speculum was placed in the right eye and an incision was made down to bare sclera in the inferior nasal fornix. The medial rectus muscle was hooked and found to be approximately 9 mm behind the original insertion. Extensive scar tissue was dissected free from the muscle as well as T9 capsule and the muscle was secured at its insertion with a double-armed Vicryl suture. The muscle was then disinserted from the globe and left for later. An incision was then made down to bare sclera in the inferotemporal fornix. The lateral rectus muscle was hooked and found to be approximately 1 mm behind its original insertion. The inferior oblique was scarred to the inferior insertion of the lateral rectus muscle and the underlying sclera. There was no orbital fat involved in this scar complex. The inferior oblique was carefully dissected free allowing it to retract to a normal location. Scar tissue was then dissected free from the lateral rectus muscle and its insertion was secured with a double-armed Vicryl suture. The muscle was then disinserted the globe and reattached to a position 8 mm behind that insertion. Conjunctiva was closed with interrupted Vicryl sutures. The medial rectus muscle was then drawn forward to a position 6 mm behind the surgical limbus using the Vicryl sutures. Its overlying conjunctiva was closed with interrupted Vicryl sutures. The patient was then awoken from general anesthesia and discharged to postoperative recovery in good condition.
[2022-06-05 14:38] VITALS: BP 122/76; PULSE 82; RESP 20; TEMP 36.9; O2SAT 97
== END 2022-06-05 14:55 | disposition home or self-care (01) ==
PROVIDERS: PCP Internal Medicine; Visit Provider Ophthalmology
PROC: (CPT 67312; principal; 2022-06-05 12:20)
DX: H53.2 Diplopia (principal); J44.9 Chronic obstructive pulmonary disease, unspecified; R91.1 Solitary pulmonary nodule; N40.0 Benign prostatic hyperplasia without lower urinary tract symptoms; N20.0 Calculus of kidney; Z79.899 Other long term (current) drug therapy; Z88.8 Allergy status to other drugs, medicaments and biological substances; F17.210 Nicotine dependence, cigarettes, uncomplicated; F12.90 Cannabis use, unspecified, uncomplicated
CPT/HCPCS: 67312; J0131; J1100; J1885; J2250; J2405; J3010

== ENCOUNTER 2022-10-02 14:47 | Emergency (ER) | payer OTHER, SELFPAY ==
--- NOTE | ~2022-10-02 | XR_ITS ---
EXAMINATION: XR WRIST, RIGHT CLINICAL INFORMATION: Laceration COMPARISON: None available. TECHNIQUE: PA, lateral, and oblique views of the right wrist. Scaphoid view. FINDINGS: There is no evidence of acute fracture or dislocation of the right wrist. No destructive bony lesions identified. Joint spaces are maintained. No radiopaque foreign body is appreciated. No gas within the soft tissues is seen. XR/XR wrist RT min 3V IMPRESSION: No significant right wrist abnormality appreciated.
--- NOTE | 2022-10-02 14:51 | ED_ITS ---
HPI - General Adult General Chief complaint: Wound/Laceration Stated complaint: R hand lac Time Seen by Provider: 10/02/22 16:41 Related Data Home Medications Medication Instructions Recorded Confirmed albuterol sulfate 90 mcg/actuation 2 puff inhalation Q4H PRN wheezing 05/30/22 05/30/22 aerosol inhaler (Ventolin HFA) budesonide 160 mcg-glycopyr 9 2 puff inhalation BID 05/30/22 05/30/22 mcg-formot 4.8 mcg/actuation HFA inhaler (Breztri Aerosphere) budesonide-formoterol HFA 160 2 puff inhalation BID 05/30/22 05/30/22 mcg-4.5 mcg/actuation aerosol inhaler (Symbicort) ipratropium 20 mcg-albuterol 100 1 puff inhalation QID 05/30/22 05/30/22 mcg/actuation mist for inhalation (Combivent Respimat) tiotropium bromide 2.5 2 spray inhalation DAILY 05/30/22 05/30/22 mcg/actuation mist for inhalation (Spiriva Respimat) Previous Rx's Medication Instructions Recorded fluticasone propionate 50 2 spray intranasal DAILY #16 grams 08/26/21 mcg/actuation nasal spray,suspension (Flonase Allergy Relief) Allergies Allergy/AdvReac Type Severity Reaction Status Date / Time Roxicet Allergy Intermediate Shakiness Uncoded 05/30/22 10:37 [facility] Past Medical History Medical History Asthma BPH (benign prostatic hyperplasia) COPD (chronic obstructive pulmonary disease) Pulmonary nodule Renal calculi Surgical History (Updated 05/30/22 @ 10:39 by Giuliana Galeas RN) Hx of hernia repair Social History Social History (Updated 05/30/22 @ 10:47 by Giuliana Galeas RN) Alcohol intake: unknown Patient Tobacco Use Status: Current everyday Tobacco user Tobacco use type: Cigarette Cigarette Packs Per Day: 1 Cigarettes Per Day: 20.0 Years Smoked: 35 Smoked in Last 30 Days: No Use of substances other than those prescribed or required for medical reasons: Refusing to respond Substance Use Type: Marijuana Advance Directives: No Advance Directives Information Provided: No Physical Exam ED Vital Signs: Vital Signs - 24 hr 05/31/23 14:53 Temperature 98.1 F Pulse Rate 87 Respiratory Rate 18 Blood Pressure 123/86 Pulse Oximetry 96 Oxygen Delivery Method Room Air BMI result Body Mass Index 24.1 Course Course Course Narrative: This is an RME: Additional HPI, ROS, PE not included below will be deferred to primary provider. This is a [id number]-dlo-male, hx of COPD and asthma, who presents to the emergency department with a complaints of right hand and wrist laceration. He states that he was taking out pieces of metal out of his truck two hours ago and lacerated his right hand. Right hand and wrist with full thickness laceration to palm and right dorsal wrist. Sensation and circulation intact. Will need suture repair. Last tetanus shot 2-3 years ago. Plan: right wrist x-ray ordered. Reevaluation(s) Reevaluation #1: Pt eloped prior to being seen in main ER for treatment. Discharge Plan Discharge Clinical Impression: Laceration of hand Patient Disposition: Elopement Prescriptions: No Action fluticasone propionate [Flonase Allergy Relief] 50 mcg/actuation spray,suspension 2 spray intranasal DAILY Qty: 16 0RF Rx Instructions: administer into each nostril albuterol sulfate [Ventolin HFA] 90 mcg/actuation HFA aerosol inhaler 2 puff INHALATION Q4H PRN (Reason: wheezing) budesonide-formoterol [Symbicort] 160-4.5 mcg/actuation HFA aerosol inhaler 2 puff INHALATION BID Spiriva Respimat 2.5 mcg/actuation mist 2 spray INHALATION DAILY Combivent Respimat 20-100 mcg/actuation Mist 1 puff INHALATION QID Rx Instructions: space evenly during waking hours Breztri Aerosphere 160-9-4.8 mcg/actuation HFA aerosol inhaler 2 puff INHALATION BID Interventions: ED Discharge Assessment Last Done: 10/02/22 17:08 Discharge Date/Time: 10/02/22 17:09
[2022-10-02 14:53] VITALS: BP 123/86; PULSE 87; RESP 18; TEMP 36.7; O2SAT 96; BMI 24.1
== END 2022-10-02 17:09 | disposition left against medical advice (07) ==
PROVIDERS: Emergency Provider Emergency Medicine; PCP Internal Medicine
DX: S61.411A Laceration without foreign body of right hand, initial encounter (principal); W26.8XXA Contact with other sharp object(s), not elsewhere classified, initial encounter; F17.210 Nicotine dependence, cigarettes, uncomplicated; F12.90 Cannabis use, unspecified, uncomplicated; Y93.9 Activity, unspecified; Y92.9 Unspecified place or not applicable; Y99.9 Unspecified external cause status
CPT/HCPCS: 73110; 99283; 99284

== ENCOUNTER 2024-02-03 11:11 | Emergency (ER) | payer MEDICAID, SELFPAY ==
--- NOTE | ~2024-02-03 | XR_ITS ---
EXAMINATION: XR CHEST CLINICAL INFORMATION: Left-sided chest pain COMPARISON: 04/24/2022 as well as the oldest film dated 01/31/2019 TECHNIQUE: Frontal view of the chest was obtained. FINDINGS: No significant abnormality is noted involving the heart, lungs, mediastinum, bony thorax or soft tissues. 2 nodular densities seen overlying the left lobe are unchanged dating back to 01/31/2019 XR/XR chest 1V IMPRESSION: No acute intrathoracic disease. Electronically signed by: Edwar Rodríguez MD 02/03/2024 01:12 PM EDT RP
--- NOTE | 2024-02-03 11:14 | ECG_ITS ---
Test Reason : chest pain Blood Pressure : / mmHG Vent. Rate : 066 BPM Atrial Rate : 066 BPM P-R Int : 170 ms QRS Dur : 100 ms QT Int : 412 ms P-R-T Axes : 082 072 069 degrees QTc Int : 431 ms Normal sinus rhythm Normal ECG When compared with ECG of 02-JUL-2019 08:52, No significant change was found Referred By: Henri Abarca Electronically Signed By:FLORENCE MCNEAL
[2024-02-03 11:24] VITALS: BP 125/81; PULSE 69; RESP 18; TEMP 36.6; O2SAT 99; BMI 20.6
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
[2024-02-03 11:41] LABS: MANUAL DIFF FLAG NO
[2024-02-03 11:46] LABS: Basophils Absolute Auto 0.1 X10*3/uL (0.0-0.2); Basophils Percent Auto 0.6 % (0-2); Eosinophils Absolute Auto 0.5 X10*3/uL (0.0-0.4); Hematocrit 44.8 % (42.0-52.0); Hemoglobin 15.2 g/dl (14.0-18.0); Imm Gran Abs Auto 0.05 X10*3/uL (0.00-0.03); Imm Gran Pct Auto 0.4 % (0.0-0.4); Lymphocytes Absolute Auto 1.3 X10*3/uL (1.2-4.9); Lymphocytes Percent Auto 11.7 % (20-40); Mean Corpuscular HGB Conc 33.9 g/dl (31.0-36.0); Mean Corpuscular Hemoglobin 31.3 pg (27.0-33.0); Mean Corpuscular Volume 92.4 fL (80.0-98.0); Mean Platelet Volume 9.1 fL (9.4-12.4); Monocytes Absolute Auto 1.3 X10*3/uL (0.1-1.2); Monocytes Percent Auto 11.7 % (2-11); Neutrophils Percent Auto 71.6 % (45-73); Platelet Count 389 X10*3/uL (160-400); Red Blood Count 4.85 X10*6/uL (4.60-5.80); Red Cell Distribution Width 14.4 % (11.0-16.0); White Blood Count 11.3 X10*3/uL (4.8-10.8)
[2024-02-03 11:50] LABS: Prothrombin Time 12.2 SEC (10.9-12.4)
[2024-02-03 12:00] LABS: Alanine Aminotransferase 12 U/L (0-40); Albumin Level 4.1 g/dL (3.5-5.0); Alkaline Phosphatase 78 U/L (39-117); Anion Gap 13 (12-20); Aspartate Amino Transferase 14 U/L (5-37); Bilirubin Total 0.3 mg/dL (0.0-1.0); Blood Urea Nitrogen 19 mg/dL (9-16); Calcium 9.6 mg/dL (8.4-10.2); Carbon Dioxide 28 mmol/L (22-29); Chloride 106 mmol/L (96-108); Creatinine Clr Calc Pharmacy 77.1; Estimated Glomerular Filt Rate > 60; Glucose Random 123 mg/dL (60-115); Lipase 26 U/L (8-78); Potassium 4.8 mmol/L (3.3-5.1); Sodium 142 mmol/L (135-145); Total Protein 7.7 g/dL (6.5-8.0)
[2024-02-03 12:12] LABS: Troponin-I High Sensitivity < 2.7 ng/L (<3.5-35.0)
--- NOTE | 2024-02-03 13:12 | PC.NURSE ---
MD Weller at bedside to evaluate patient at this time.
[2024-02-03 13:18] VITALS: BP 115/83; PULSE 71; RESP 18; TEMP 36.6; O2SAT 99
[2024-02-03 13:33] LABS: D Dimer High Sensitivity 186 NG/ML
--- NOTE | 2024-02-03 13:45 | PC.NURSE ---
Per MD Weller, pt does not need any blood cultures prior to administration of IV doxycycline.
[2024-02-03] MEDS: Ketorolac Tromethamine 15 MG/ML VIAL IVPUSH (13:47)
[2024-02-03] MEDS: methylPREDNISolone Sod Succ 125 MG/2 ML VIAL IVPUSH (13:48)
[2024-02-03] MEDS: Doxycycline Hyclate 100 MG in 0.9 % Sodium Chloride 250 ML 166.67 MG IV (13:48)
--- NOTE | 2024-02-03 14:27 | PC.NURSE ---
Pt ambulatory to the BR with a steady gait.
[2024-02-03] MEDS: Albuterol Sulfate 2.5 MG, Albuterol/Iprat 2.5/0.5MG 3 ML 3 ML INHALE (14:36)
[2024-02-03 14:40] VITALS: PULSE 63; RESP 18; O2SAT 96
--- NOTE | 2024-02-03 14:47 | PC.NURSE ---
Spoke with pt's significant other Elis, she will be here around [phone] to pick up man pt for discharge.
[2024-02-03 15:49] VITALS: BP 132/84; PULSE 63; RESP 18; TEMP 36.8; O2SAT 95
== END 2024-02-03 15:51 | disposition home or self-care (01) ==
PROVIDERS: Physician Assistant; Emergency Provider Emergency Medicine; PCP Internal Medicine
DX: J20.9 Acute bronchitis, unspecified (principal); H66.92 Otitis media, unspecified, left ear; F17.210 Nicotine dependence, cigarettes, uncomplicated; Z79.899 Other long term (current) drug therapy
CPT/HCPCS: 36415; 71045; 80053; 83690; 84484; 85025; 85379; 85610; 93005; 94640; 96374; 96375; 99284; 99285; J1885; J2919

== ENCOUNTER 2024-07-28 20:04 | Emergency (ER) | payer OTHER, SELFPAY ==
--- NOTE | 2024-07-28 | ECG_ITS ---
Test Reason : DYSPNEA Blood Pressure : */* mmHG Vent. Rate : 92 BPM Atrial Rate : 92 BPM P-R Int : 156 ms QRS Dur : 94 ms QT Int : 356 ms P-R-T Axes : 78 75 66 degrees QTcB Int : 440 ms Normal sinus rhythm Right atrial enlargement Borderline ECG When compared with ECG of 03-Feb-2024 11:11, No significant change was found Referred By: Generic ED Physician Electronically Signed By: LISSET DERAS MD
--- NOTE | ~2024-07-28 | XR_ITS ---
CLINICAL HISTORY: trauma Chest and right ribs. Comparison 02/03/2024. Findings: Heart size is normal. The lungs are hyperinflated. Is mild interstitial thickening in the lungs. No focal consolidation or pleural effusion is seen. No pneumothorax is identified. Impression: No acute fractures are seen. There is mild nonspecific interstitial thickening. Mild edema and infection are possibilities This document has been electronically signed by: Delta Mayberry MD on 07/28/2024 21:04:51
--- NOTE | 2024-07-28 20:09 | ED_ITS ---
HPI - General Adult General Chief complaint: Dyspnea Stated complaint: diff breathing Time Seen by Provider: 07/28/24 21:22 Source: patient Limitations: no limitations History of Present Illness ED Provider: Giuliana Birch PA-C HPI narrative: 54-year-old male with a history of COPD and ongoing tobacco abuse presents with difficulty breathing x1 day. patient states his home inhalers have not been effective. Denies recent cough and cold symptoms, no fever. Related Data Home Medications ?Medication ?Instructions ?Recorded ?Confirmed albuterol sulfate 90 mcg/actuation 2 puff inhalation Q4H PRN wheezing 05/30/22 05/30/22 aerosol inhaler (Ventolin HFA) budesonide 160 mcg-glycopyr 9 2 puff inhalation BID 05/30/22 05/30/22 mcg-formot 4.8 mcg/actuation HFA inhaler (Breztri Aerosphere) budesonide-formoterol HFA 160 2 puff inhalation BID 05/30/22 05/30/22 mcg-4.5 mcg/actuation aerosol inhaler (Symbicort) ipratropium 20 mcg-albuterol 100 1 puff inhalation QID 05/30/22 05/30/22 mcg/actuation mist for inhalation (Combivent Respimat) tiotropium bromide 2.5 2 spray inhalation DAILY 05/30/22 05/30/22 mcg/actuation mist for inhalation (Spiriva Respimat) Previous Rx's ?Medication ?Instructions ?Recorded fluticasone propionate 50 2 spray intranasal DAILY #16 grams 08/26/21 mcg/actuation nasal spray,suspension (Flonase Allergy Relief) albuterol sulfate 90 mcg/actuation 2 puff inhalation Q6H PRN 02/03/24 aerosol inhaler shortness of breath or wheezing #8.5 grams doxycycline hyclate 100 mg tablet 100 mg PO BID #20 tabs 02/03/24 prednisone 20 mg tablet 20 mg PO BID #10 tabs 02/03/24 amoxicillin 875 mg-potassium 1 tab PO Q12H #19 tabs 07/29/24 clavulanate 125 mg tablet azithromycin 250 mg tablet 250 mg PO DAILY 4 days #4 tabs 07/29/24 prednisone 20 mg tablet 40 mg (2 x 20 mg) PO DAILY #8 tabs 07/29/24 Allergies Allergy/AdvReac Type Severity Reaction Status Date / Time Roxicet Allergy Intermediate Shakiness Uncoded 07/28/24 20:12 Review of Systems 2 Review of Systems: Yes all other systems are reviewed and are negative Constitutional: Constitutional: Denies fatigue and Denies fever(s) Cardiovascular: Cardiovascular: Denies chest pain and Reports dyspnea Respiratory: Respiratory: Denies cough, Reports dyspnea and Reports wheezing Gastrointestinal: Gastrointestinal: Denies abdominal pain Endocrine: Endocrine: Denies fatigue Allergic/Immunologic: Allergic/Immunologic: Reports wheezing PMFSH Past Medical History Attestation statement: The following information was validated with the patient. Medical History BPH (benign prostatic hyperplasia) Pulmonary nodule Renal calculi COPD (chronic obstructive pulmonary disease) Asthma Surgical History Hx of hernia repair Social History Social History Alcohol intake: unknown Patient Tobacco Use Status: Current everyday Tobacco user Tobacco use type: Cigarette Cigarette Packs Per Day: 1 Cigarettes Per Day: 20.0 Years Smoked: 35 Smoked in Last 30 Days: Yes Use of substances other than those prescribed or required for medical reasons: No Substance Use Type: Marijuana Advance Directives: No Advance Directives Information Provided: No Do you have a plan to hurt others: No Plan Physical Exam ED Vital Signs: Vital Signs - 24 hr 07/28/24 20:11 07/28/24 22:30 Temperature 97.2 F 98.0 F Pulse Rate 90 99 Respiratory Rate 23 H 16 Blood Pressure 164/109 H 160/102 H Pulse Oximetry 93 95 Oxygen Delivery Method Room Air Room Air BMI result Body Mass Index 21.0 Const Other: Awake, appears older than stated age, cachectic Orientation/consciousness: patient oriented x3 Resp Other: labored respirations, diminished, faint expiratory wheezes Cardio Other: normal peripheral perfusion Skin Other: warm dry no rash Neuro General: patient oriented x3, gait normal, no focal motor deficits and CN's II- XI intact bilaterally Psych Other: cooperative Course Course Course Narrative: RME, this is a rapid medical exam performed by Jonathan Abarca please refer to primary provider for complete H&P- 54-year-old male presents for evaluation of shortness of breath. he has a history of COPD. he reports that he hit his right flank yesterday and has been having pain to the area ever since. plan for x-ray of the right ribs with a PA chest. Reevaluation(s) Reevaluation #1: Ambulated the patient he maintained oxygen saturation 93% on room air Medications Administered Discontinued Medications Generic Name Dose Route Start Last Admin Trade Name Nagi PRN Reason Stop Dose Admin Albuterol Sulfate 7.5 mg/ 10 mg 07/28/24 22:00 07/28/24 22:11 Albuterol Sulfate 2.5 mg INHALE 07/28/24 22:01 Not Given ONCE ONE Amoxicillin/Clavulanate Potassium 875 mg 07/28/24 21:45 07/28/24 22:36 Amoxicillin/Potassium Clav 875 Mg Tablet PO 07/28/24 21:46 875 mg ONCE ONE Administration Doxycycline Monohydrate 100 mg 07/28/24 21:45 07/28/24 22:36 Doxycycline Monohydrate 100 Mg Capsule PO 07/28/24 21:46 100 mg ONCE ONE Administration Magnesium Sulfate 2 gm in 50 mls @ 25 mls/hr 07/28/24 21:45 07/28/24 23:18 Magnesium Sulfate/H2o IV 07/28/24 23:44 Infused ONCE ONE Infusion Methylprednisolone Sodium Succinate 125 mg 07/28/24 21:45 07/28/24 22:21 Methylprednisolone Sod Succ 125 Mg/2 Ml Vial IVPUSH 07/28/24 21:46 125 mg ONCE ONE Administration Medical Decision Making Medical Decision Making MDM Narrative: 54-year-old male with a history of COPD and ongoing tobacco abuse presents with difficulty breathing x1 day. patient states his home inhalers have not been effective. Denies recent cough and cold symptoms, no fever. Problem: COPD and ongoing tobacco abuse History: Per patient I have considered the following differential diagnoses: COPD exacerbation, viral syndrome, pneumonia, bronchitis Plan: Basic labs and a chest x-ray were obtained from triage, the patient has not had preceding cough and cold symptoms or fever, he states his symptoms were triggered by hitting his flank yesterday. On x-ray it shows his if he is having bronchitis. I ordered the bronchodilator protocol, the patient refuses, he states he does not like how the albuterol makes him feel. We will treat with the antibiotics and steroid. I have independently reviewed the following tests: Labs: Slight leukocytosis, not anemic, no electrolyte abnormality, viral panel negative Chest x-ray:Findings: Heart size is normal. The lungs are hyperinflated. Is mild interstitial thickening in the lungs. No focal consolidation or pleural effusion is seen. No pneumothorax is identified. Impression: No acute fractures are seen. There is mild nonspecific interstitial thickening. Mild edema and infection are possibilities Lab Data 07/28/24 20:22 07/28/24 20:22 Labs: Lab Results 07/28/24 07/28/24 Range/Units 20:22 20:34 WBC 13.9 H (4.8-10.8) X10*3/uL RBC 5.25 (4.60-5.80) X10*6/uL Hgb 16.4 (14.0-18.0) g/dl Hct 46.1 (42.0-52.0) % MCV 87.8 (80.0-98.0) fL MCH 31.2 (27.0-33.0) pg MCHC 35.6 (31.0-36.0) g/dl RDW 13.6 (11.0-16.0) % Plt Count 367 (160-400) X10*3/uL MPV 9.4 (9.4-12.4) fL Immature Gran % (Auto) 0.4 (0.0-0.4) % Neut % (Auto) 79.7 H (45-73) % Lymph % (Auto) 9.5 L (20-40) % [place] % (Auto) 9.0 (2-11) % Eos % (Auto) 0.9 (0-4) % Baso % (Auto) 0.5 (0-2) % Lymph # (Auto) 1.3 (1.2-4.9) X10*3/uL [place] # (Auto) 1.3 H (0.1-1.2) X10*3/uL Eos # (Auto) 0.1 (0.0-0.4) X10*3/uL Baso # (Auto) 0.1 (0.0-0.2) X10*3/uL Abs Immat Gran (auto) 0.05 H (0.00-0.03) X10*3/uL Absolute Neuts (auto) 11.0 H (2.0-8.3) x10*3/uL Absolute Nucleated RBC 0.000 (0.0-0.012) X10*3/uL Nucleated RBC % (auto) 0.0 (0.0-0.2) /100WBC Sodium 136 (135-145) mmol/L Potassium 4.1 (3.3-5.1) mmol/L Chloride 98 (96-108) mmol/L Carbon Dioxide 29 (22-29) mmol/L Anion Gap 13 (12-20) BUN 16 (9-16) mg/dL Creatinine 0.79 (0.5-1.4) mg/dL Estim Creat Clear Calc 96.2 Estimated GFR > 60 Random Glucose 161 H (60-115) mg/dL Calcium 9.5 (8.4-10.2) mg/dL Total Bilirubin 0.6 (0.0-1.0) mg/dL AST 28 (5-37) U/L ALT 21 (0-40) U/L Alkaline Phosphatase 94 (39-117) U/L Troponin I High Sens 3.1 (<3.5-35.0) ng/L Total Protein 7.9 (6.5-8.0) g/dL Albumin 3.9 (3.5-5.0) g/dL Influenza Type A (PCR) NEGATIVE (Negative) Influenza Type B (PCR) NEGATIVE (Negative) RSV RNA Qual (PCR) NEGATIVE (Negative) SARS-CoV-2 RNA (RT-PCR) NEGATIVE (Negative) Discharge Plan Discharge Clinical Impression: Bronchitis Patient Disposition: Home, Self-Care Instructions: Acute Bronchitis (ED) Additional Instructions: you are being treated for bronchitis. See home care instructions. Take the steroid as directed. You should be using your home and nebulizer as directed. Take both antibiotics as directed complete each course. Follow up with your primary care provider as needed. Prescriptions: New amoxicillin-pot clavulanate 875-125 mg tablet 1 tab PO Q12H Qty: 19 0RF azithromycin 250 mg tablet 250 mg PO DAILY 4 Days Qty: 4 0RF Rx Instructions: start on day 2 of therapy prednisone 20 mg tablet 40 mg PO DAILY Qty: 8 0RF No Action fluticasone propionate [Flonase Allergy Relief] 50 mcg/actuation spray,suspension 2 spray intranasal DAILY Qty: 16 0RF Rx Instructions: administer into each nostril albuterol sulfate [Ventolin HFA] 90 mcg/actuation HFA aerosol inhaler 2 puff INHALATION Q4H PRN (Reason: wheezing) budesonide-formoterol [Symbicort] 160-4.5 mcg/actuation HFA aerosol inhaler 2 puff INHALATION BID Spiriva Respimat 2.5 mcg/actuation mist 2 spray INHALATION DAILY Combivent Respimat 20-100 mcg/actuation Mist 1 puff INHALATION QID Rx Instructions: space evenly during waking hours Breztri Aerosphere 160-9-4.8 mcg/actuation HFA aerosol inhaler 2 puff INHALATION BID albuterol sulfate 90 mcg/actuation HFA aerosol inhaler 2 puff inhalation Q6H PRN (Reason: shortness of breath or wheezing) Qty: 8.5 0RF prednisone 20 mg tablet 20 mg PO BID Qty: 10 0RF doxycycline hyclate 100 mg tablet 100 mg PO BID Qty: 20 0RF Print Language: Icelandic
[2024-07-28 20:11] VITALS: BP 164/109; PULSE 90; RESP 23; TEMP 36.2; O2SAT 93; BMI 21.0
[2024-07-28 20:26] LABS: MANUAL DIFF FLAG NO
[2024-07-28 20:28] LABS: Basophils Absolute Auto 0.1 X10*3/uL (0.0-0.2); Basophils Percent Auto 0.5 % (0-2); Eosinophils Absolute Auto 0.1 X10*3/uL (0.0-0.4); Eosinophils Percent Auto 0.9 % (0-4); Hematocrit 46.1 % (42.0-52.0); Hemoglobin 16.4 g/dl (14.0-18.0); Imm Gran Abs Auto 0.05 X10*3/uL (0.00-0.03); Imm Gran Pct Auto 0.4 % (0.0-0.4); Lymphocytes Absolute Auto 1.3 X10*3/uL (1.2-4.9); Lymphocytes Percent Auto 9.5 % (20-40); Mean Corpuscular HGB Conc 35.6 g/dl (31.0-36.0); Mean Corpuscular Hemoglobin 31.2 pg (27.0-33.0); Mean Corpuscular Volume 87.8 fL (80.0-98.0); Mean Platelet Volume 9.4 fL (9.4-12.4); Monocytes Absolute Auto 1.3 X10*3/uL (0.1-1.2); Neutrophils Percent Auto 79.7 % (45-73); Platelet Count 367 X10*3/uL (160-400); Red Blood Count 5.25 X10*6/uL (4.60-5.80); Red Cell Distribution Width 13.6 % (11.0-16.0); White Blood Count 13.9 X10*3/uL (4.8-10.8)
[2024-07-28 20:43] LABS: Alanine Aminotransferase 21 U/L (0-40); Albumin Level 3.9 g/dL (3.5-5.0); Alkaline Phosphatase 94 U/L (39-117); Anion Gap 13 (12-20); Aspartate Amino Transferase 28 U/L (5-37); Bilirubin Total 0.6 mg/dL (0.0-1.0); Blood Urea Nitrogen 16 mg/dL (9-16); Calcium 9.5 mg/dL (8.4-10.2); Carbon Dioxide 29 mmol/L (22-29); Chloride 98 mmol/L (96-108); Creatinine Clr Calc Pharmacy 96.2; Estimated Glomerular Filt Rate > 60; Glucose Random 161 mg/dL (60-115); Potassium 4.1 mmol/L (3.3-5.1); Sodium 136 mmol/L (135-145); Total Protein 7.9 g/dL (6.5-8.0)
[2024-07-28 20:50] LABS: Troponin-I High Sensitivity 3.1 ng/L (<3.5-35.0)
[2024-07-28 21:22] LABS: Influenza A PCR NEGATIVE (Negative); Influenza B PCR NEGATIVE (Negative); Resp Syncy Virus RNA Qual PCR NEGATIVE (Negative); SARS COV2 PCR INHOUSE NEGATIVE (Negative)
[2024-07-28] MEDS: methylPREDNISolone Sod Succ 125 MG/2 ML VIAL IVPUSH (22:21)
[2024-07-28 22:30] VITALS: BP 160/102; PULSE 99; RESP 16; TEMP 36.7; O2SAT 95
[2024-07-28] MEDS: Doxycycline Monohydrate 100 MG CAPSULE PO (22:36)
[2024-07-28] MEDS: Amoxicillin/Potassium Clav 875 MG TABLET PO (22:36)
[2024-07-28] MEDS: Magnesium Sulfate/H2O 2 GM/50 ML PIGGYBACK IV (22:40)
[2024-07-29 00:34] VITALS: BP 0/0; PULSE 0; RESP 16; TEMP -17.7; TEMP 0; O2SAT 0
== END 2024-07-29 00:35 | disposition home or self-care (01) ==
PROVIDERS: Emergency Provider Emergency Medicine; PCP Internal Medicine
DX: J40 Bronchitis, not specified as acute or chronic (principal); R06.02 Shortness of breath; Z03.818 Encounter for observation for suspected exposure to other biological agents ruled out
CPT/HCPCS: 0241U; 36415; 71101; 80053; 84484; 85025; 93005; 96365; 96375; 99284; 99285; J2919; J3475

== ENCOUNTER → 2024-07-28 20:10 | Outpatient (BNV) | payer OTHER, SELFPAY | PROVIDERS: PCP Internal Medicine; Visit Provider Radiology Diagnostic Radiology | DX: J84.9 Interstitial pulmonary disease, unspecified (principal) | CPT/HCPCS: 71101 ==

== ENCOUNTER → 2024-07-28 20:13 | Outpatient (BNV) | payer OTHER, SELFPAY | PROVIDERS: Emergency Provider Emergency Medicine; PCP Internal Medicine; Visit Provider Internal Medicine Cardiovascular Disease | DX: I51.7 Cardiomegaly (principal) | CPT/HCPCS: 93010 ==